=== PATIENT | female | born 1970 | race African-American/Black ===

== ENCOUNTER 2018-07-28 17:55 | Emergency (ER) | payer OTHER ==
[2018-07-28 18:09] VITALS: BP 164/85; PULSE 76; TEMP 99; BMI 29.2
--- NOTE | 2018-07-28 19:27 | PDOC ---
Attending Attestation - HPI HPI: 07/28/18 19:30 The patient is a 48 year old female, with no significant PMH, who presents to the emergency department with bilateral thumb contractions occurring early today. The patient states she was putting a pin in her hair when she experienced the bilateral thumb contractions which lasted for approx 2 minutes before resolving on its own. The patient denies chest pain, shortness of breath, headache and dizziness. Denies fever, chills, nausea, vomit, diarrhea and constipation. Denies dysuria, frequency, urgency and hematuria. Allergies: NKA Documentation prepared by Gianluca Smith, acting as medical assistant prn for Richard Ga MD. <Gianluca Smith - Last Filed: 07/28/18 19:30> - Resident Resident Name: Shweta Rios - ED Attending Attestation I have performed the following: I have examined & evaluated the patient, The case was reviewed & discussed with the resident, I agree w/resident's findings & plan, Exceptions are as noted - Physicial Exam PE: 07/28/18 20:19 Patient is awake and alert, well-appearing, mildly hypertensive on arrival Normocephalic atraumatic PERRLA, EOMI CTA RRR No focal neurological deficits No bony tenderness to palpation; full range of motion in all extremities - Medical Decision Making 07/28/18 20:20 Patient is a 48-year-old female who presents with involuntary contraction of thumbs bilaterally which is now resolved. No acute abnormalities noted on physical evaluation. Testing for carpal tunnel or hypercalcemia are negative. Will obtain CBC/CMP. Will reassess. Likely discharge. <Richard Ga - Last Filed: 07/28/18 20:20>
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
[2018-07-28 20:22] LABS: BASO % 0.3 % (0-2.0); EOS % 0.1 % (0-4.5); HEMATOCRIT 37.4 % (32.4-45.2); HEMOGLOBIN 12.2 GM/dL (10.7-15.3); LYMPH % 37.4 % (8-40); MCH 26.7 pg (25.7-33.7); MCHC 32.7 g/dl (32.0-36.0); MEAN CELL VOLUME 81.7 fl (80-96); MEAN PLT VOLUME 11.2 fl (7.5-11.1); MONO % 3.7 % (3.8-10.2); NEUT % 58.5 % (42.8-82.8); PLATELET COUNT 195 K/MM3 (134-434); RBC 4.58 M/mm3 (3.60-5.2); RDW 13.9 % (11.6-15.6); WHITE BLOOD COUNT 11.1 K/mm3 (4.0-10.0)
[2018-07-28 20:45] LABS: ALBUMIN 4.2 g/dl (3.4-5.0); ALK PHOS 102 U/L (45-117); ANION GAP 9 MMOL/L (8-16); BILIRUBIN,TOTAL 0.3 mg/dL (0.2-1); BLOOD UREA NITROGEN 14 mg/dL (7-18); CALCIUM 9.1 mg/dL (8.5-10.1); CHLORIDE 103 mmol/L (98-107); CO2 28 mmol/L (21-32); CREATININE 0.9 mg/dL (0.55-1.3); GLUCOSE,RANDOM 85 mg/dL (74-106); POTASSIUM 3.5 mmol/L (3.5-5.1); SGOT/AST 14 U/L (15-37); SGPT/ALT 21 U/L (13-61); SODIUM 141 mmol/L (136-145); TOT PROT 8.4 g/dl (6.4-8.2)
--- NOTE | 2018-07-29 18:55 | EKG ---
Test Reason : Blood Pressure : / mmHG Vent. Rate : 070 BPM Atrial Rate : 070 BPM P-R Int : 188 ms QRS Dur : 080 ms QT Int : 394 ms P-R-T Axes : 050 030 017 degrees QTc Int : 425 ms NORMAL SINUS RHYTHM POSSIBLE LEFT ATRIAL ENLARGEMENT BORDERLINE ECG NO PREVIOUS ECGS AVAILABLE Confirmed by SLIME DAVIS MD ([id number]) on 07/29/2018 6:55:02 PM Referred By: Confirmed By:SLIME DAVIS MD
== END 2018-07-28 22:21 | disposition home or self-care (01) ==
LOC: JER 17:55
DX: M25.642 Stiffness of left hand, not elsewhere classified (principal); M25.641 Stiffness of right hand, not elsewhere classified
CPT/HCPCS: 36415; 80053; 85025; 93005; 93010; 99282-25

== ENCOUNTER 2021-04-07 15:40 | Emergency (ER) | payer OTHER ==
[2021-04-07 16:00] VITALS: BP 118/77; PULSE 89; TEMP 98.2; BMI 27.4
== END 2021-04-07 17:07 | disposition home or self-care (01) ==
LOC: JERFT 15:40
DX: S03.40XA Sprain of jaw, unspecified side, initial encounter (principal)
CPT/HCPCS: 99281-25

== ENCOUNTER 2021-12-29 06:37 | Emergency (ER) | payer OTHER ==
[2021-12-29 06:59] VITALS: BP 148/85; PULSE 74; TEMP 97.8; BMI 28.3
== END 2021-12-29 08:40 | disposition home or self-care (01) ==
LOC: JER 06:37
DX: S00.03XA Contusion of scalp, initial encounter (principal); W22.8XXA Striking against or struck by other objects, initial encounter
CPT/HCPCS: 99283-25; 99284-25

== ENCOUNTER 2022-05-06 11:44 | Emergency (ER) | payer OTHER ==
[2022-05-06 11:53] VITALS: BP 157/88; PULSE 78; RESP 18; TEMP 98; BMI 28.3
[2022-05-06] MEDS ORDERED: IBUPROFEN 600 MG TABLET (FP) PO ONE ×2 (12:29→12:35)
== END 2022-05-06 14:25 | disposition home or self-care (01) ==
LOC: JER 11:44 → JERFT 11:44
DX: M79.671 Pain in right foot (principal); S80.11XA Contusion of right lower leg, initial encounter; W19.XXXA Unspecified fall, initial encounter; Y92.9 Unspecified place or not applicable
CPT/HCPCS: 73590-TC-LT-FY; 73630-TC-RT-FY; 99284-25